=== PATIENT | female | born 1960 | race Two or more races ===

== ENCOUNTER 2018-02-24 08:17 | Day surgery (SDC) | payer OTHER ==
[2018-02-24] MEDS ORDERED: MIDAZOLAM 1 MG/ML 2 ML INJ (08:40)
[2018-02-24] MEDS ORDERED: FENTAnyl 50 MCG/ML VIAL (08:40)
[2018-02-24] MEDS ORDERED: PROPOFOL 20 ML (08:40)
== END 2018-02-24 13:45 | disposition home or self-care (01) ==
LOC: GIL 08:17
DX: Z12.11 Encounter for screening for malignant neoplasm of colon (principal); K29.30 Chronic superficial gastritis without bleeding; K21.9 Gastro-esophageal reflux disease without esophagitis; D12.5 Benign neoplasm of sigmoid colon; K64.8 Other hemorrhoids; K57.90 Diverticulosis of intestine, part unspecified, without perforation or abscess without bleeding; K44.9 Diaphragmatic hernia without obstruction or gangrene
CPT/HCPCS: 43239; 88305; 88312